=== PATIENT | male | born 1935 | race Caucasian/White ===

== ENCOUNTER 2019-04-21 02:22 | Emergency (ER) | payer MEDICARE, BC ==
[~2019-04-21] VITALS: Ht 172.7 cm; Wt 72.6 kg
[2019-04-21 03:11] LABS: Source, Urine Clean Catch
[2019-04-21 03:13] LABS: Appearance, Urine Bloody (Clear); Bilirubin, Urine Neg (Neg); Blood, Urine 5+ (Neg); Color, Urine Red (P-Yellow); Glucose Qualitative, Urine Neg (Neg); Ketones, Urine 1+ (Neg); Leukocyte Esterase, Urine Neg (Neg); Nitrite, Urine Neg (Neg); Protein, Urine 4+ (Neg); Specific Gravity, Urine 1.015 (1.003-1.022); Urobilinogen, Urine NORM (Normal)
[2019-04-21 03:23] LABS: Bacteria Not Seen /hpf; Red Blood Cells, Urine TNTC /hpf (0-2); Squamous Epithelial Cells Not Seen /hpf (Few); White Blood Cells, Urine 0-2 /hpf (0-5)
[2019-04-21] MEDS ORDERED: BICALUTAMIDE50 MG PO (04:23)
[2019-04-21] MEDS ORDERED: ATORVASTATIN CA20 MG PO (04:24)
[2019-04-21] MEDS ORDERED: Lopressor 25 mg25 MG PO (04:24)
[2019-04-21] MEDS ORDERED: CHLO4 PO (04:25)
[2019-04-21] MEDS ORDERED: VIT1CAPS12 PO (04:26)
== END 2019-04-21 05:36 | disposition home or self-care (01) ==
LOC: ER 02:22
PROVIDERS: Emergency Medicine
DX: R31.9 Hematuria, unspecified (principal); R33.9 Retention of urine, unspecified; Z85.01 Personal history of malignant neoplasm of esophagus; Z85.46 Personal history of malignant neoplasm of prostate; Z79.899 Other long term (current) drug therapy
CPT/HCPCS: 36415; 51702; 80048; 81001; 85025; 85610; 99283

== ENCOUNTER 2019-04-24 06:54 | Emergency (ER) | payer MEDICARE, BC ==
[~2019-04-24] VITALS: Ht 172.7 cm; Wt 72.6 kg
[~2019-04-24 06:54] MED LIST: ATORVASTATIN CA20 MG PO; BICALUTAMIDE50 MG PO; CHLO4 PO; Lopressor 25 mg25 MG PO; VIT1CAPS12 PO
[2019-04-24 08:01] LABS: Source, Urine Clean Catch
[2019-04-24 08:05] LABS: Bilirubin, Urine Neg (Neg); Blood, Urine 5+ (Neg); Glucose Qualitative, Urine Neg (Neg); Ketones, Urine Neg (Neg); Leukocyte Esterase, Urine 3+ (Neg); Nitrite, Urine Neg (Neg); Protein, Urine 3+ (Neg); Specific Gravity, Urine 1.025 (1.003-1.022); Urobilinogen, Urine 1+ (Normal)
[2019-04-24 08:11] LABS: Appearance, Urine Cloudy (Clear); Color, Urine Brown (P-Yellow)
[2019-04-24 08:12] LABS: Red Blood Cells, Urine TNTC /hpf (0-2); White Blood Cells, Urine 25-50 /hpf (0-5)
[2019-04-24 08:13] LABS: Bacteria Few /hpf; Squamous Epithelial Cells Rare /hpf (Few)
[2019-04-24] MEDS ORDERED: CEFP200 PO (08:21)
== END 2019-04-24 08:35 | disposition home or self-care (01) ==
LOC: ER 06:54
PROVIDERS: Physician Assistant
DX: Z46.6 Encounter for fitting and adjustment of urinary device (principal); N39.0 Urinary tract infection, site not specified
CPT/HCPCS: 81001; 87086; 99283

== ENCOUNTER 2020-05-11 01:06 | Day surgery (SDC) | payer MEDICARE, BC ==
[~2020-05-11 01:06] MED LIST changes: +CEFP200 PO
== END 2020-05-11 23:20 | disposition home or self-care (01) ==
LOC: WOUND 01:06
DX: N30.41 Irradiation cystitis with hematuria (principal); Z85.46 Personal history of malignant neoplasm of prostate; Z90.79 Acquired absence of other genital organ(s); I10 Essential (primary) hypertension; E78.5 Hyperlipidemia, unspecified
CPT/HCPCS: 36415; 80053; 82306; 84153; 85025; G0463

== ENCOUNTER → 2020-10-27 | Outpatient (CLI) | payer MEDICARE, BC ==
[2020-10-27 13:29] LABS: Stool Occult Blood Guaiac 1 Neg (Neg)
== END | disposition home or self-care (01) ==
LOC: LAB 09:05 → LAB SHORT 09:05
PROVIDERS: Physician Assistant
DX: K62.5 Hemorrhage of anus and rectum (principal)
CPT/HCPCS: 82272